=== PATIENT | male | born 1965 | race Asian ===

== ENCOUNTER 2016-09-23 07:29 | Day surgery (SDC) | payer OTHER ==
[~2016-09-23] VITALS: Ht 167.6 cm; Wt 75.0 kg
[~2016-09-23 07:29] MED LIST: CARI250T PO; GABA300C16 PO; HYDR-3498 PO; HYDR-3720 PO; IBUP-1542 PO
[2016-09-23 08:12] VITALS: Ht 167.6 cm; Wt 75.0 kg
[2016-09-23] MEDS ORDERED: METFORMIN (08:15)
[2016-09-23 08:35] VITALS: BP 107/61; PULSE 50; RESP 17
[2016-09-23] MEDS ORDERED: MIDAZOLAM 1 MG/ML 2 ML INJ ONE (09:21)
[2016-09-23] MEDS ORDERED: FENTAnyl 50 MCG/ML VIAL ONE (09:21)
[2016-09-23 09:50] VITALS: BP 118/71; PULSE 63; RESP 13
--- NOTE | 2016-10-27 05:34 | GILP ---
DATE OF PROCEDURE: 10/08/2016 PREOPERATIVE DIAGNOSES: 1. Change in bowel habits. 2. Rectal bleeding. POSTOPERATIVE DIAGNOSES: 1. Colonoscopy all the way to the cecum. 2. Small transverse colon polyp was removed using the biopsy forceps. 3. Single diverticulum in the right colon. 4. Internal hemorrhoids. PROCEDURE PERFORMED: Colonoscopy and biopsy. SURGEON: Barber Bergman MD. INDICATION FOR PROCEDURE: Mr. Evelyne Beltran is a 51-year-old male patient who had change in the bowel habits and rectal bleeding. The patient was scheduled for colonoscopy for further evaluation. The procedure and possible complications were well explained to the patient. He understood and consented to the procedure. DESCRIPTION OF PROCEDURE: Under the influence of fentanyl and Versed the colonoscope was carefully introduced in the rectum and under direct vision it was advanced all the way to the cecum. Findings, the patient had a small transverse colon polyp and it was removed using a biopsy forceps. He was noted to have a single diverticulum in the right colon. He also had internal hemorrhoids. He tolerated the procedure very well and there was no complications from the procedure. At the end of the procedure he was awake with stable vital signs and he was discharged home in the care of his family. IMPRESSION: 1. Colonoscopy all the way to the cecum. 2. Small transverse colon polyp was removed using the biopsy forceps. 3. Single diverticulum in the right colon. 4. Internal hemorrhoids. PLAN: 1. Anusol HC 2.5 percent cream q.h.s. p.r.n. 2. Next screening colonoscopy in 10 years. Dictated By: MD BECKY Gardner/veronica/vero /Document#: [id number] CC: Barber Bergman MD;*[facility]*
== END 2016-09-23 10:29 | disposition home or self-care (01) ==
LOC: GIL 07:29
PROVIDERS: ATTEND Internal Medicine Gastroenterology
DX: R19.4 Change in bowel habit (principal); D12.3 Benign neoplasm of transverse colon; K57.90 Diverticulosis of intestine, part unspecified, without perforation or abscess without bleeding; K64.8 Other hemorrhoids; E11.9 Type 2 diabetes mellitus without complications
CPT/HCPCS: 45385; 82962; 88305; J2250; J3010; Z7610